=== PATIENT | female | born 1955 | race Hispanic/Latino ===

== ENCOUNTER 2024-08-07 12:04 | Inpatient (IN) | payer MEDICARE ==
[~2024-08-07] VITALS: Ht 157.5 cm; Wt 69.6 kg
[2024-08-07 12:10] VITALS: TEMP 98.7
[2024-08-07] MEDS ORDERED: SODIUM CHLORIDE FLUSH 10 ML SYR IV PRN (12:30)
[2024-08-07] MEDS: NITROGLYCERIN 2% OINT 1 GM PKT TOP ONE (13:09)
[2024-08-07 13:19] LABS: BASOPHILS # (AUTO) 0.1 (0.0-0.1); BASOPHILS % 0.7 % (0.0-1.0); EOSINOPHILS # (AUTO) 1.2 (0.0-0.4); EOSINOPHILS % 17.1 % (0.0-6.0); HEMATOCRIT 44.4 % (34.2-44.1); HEMOGLOBIN 15.2 g/dL (12.0-16.0); LYMPHOCYTES # (AUTO) 0.8 (1.0-3.2); LYMPHOCYTES % 10.9 % (18.0-39.1); MEAN CORPUSCULAR HEMOGLOBIN 31.8 pg (28-32); MEAN CORPUSCULAR HGB CONC 34.2 g/dL (31-35); MEAN CORPUSCULAR VOLUME 92.9 fL (81-99); MONOCYTES # (AUTO) 0.3 (0.2-0.8); MONOCYTES % 3.8 % (4.4-11.3); NEUTROPHILS # (AUTO) 4.8 (2.1-6.9); NEUTROPHILS % 66.9 % (38.7-80.0); RED BLOOD COUNT 4.78 x10e6/uL (3.6-5.1); RED CELL DISTRIBUTION WIDTH 14.2 % (11.7-14.4); WHITE BLOOD COUNT 7.18 x10e3/uL (4.8-10.8)
[2024-08-07 13:20] LABS: PLATELET COUNT 94 x10e3/uL (140-360)
[2024-08-07 13:37] LABS: ALBUMIN 3.9 g/dL (3.5-5.0); ANION GAP 13.7 mmol/L (8-16); CALCIUM 9.2 mg/dL (8.4-10.2); CREATININE, SERUM 0.77 mg/dL (0.57-1.11); POTASSIUM 3.7 mmol/L (3.5-5.1); TOTAL PROTEIN 7.7 g/dL (6.5-8.1)
[2024-08-07 13:43] LABS: TROPONIN I 0.027 ng/mL (0-0.300)
[2024-08-07 13:51] LABS: INR 1.22
[2024-08-07 13:52] LABS: PARTIAL THROMBOPLASTIN TIME 29.1 seconds (23.8-35.5)
[2024-08-07] MEDS: METHYLPREDNISOLONE SOD SUCC 125 MG/2ML VIAL IV ONE (14:18)
[2024-08-07] MEDS ORDERED: SODIUM CHLORIDE FLUSH 10 ML SYR INJ PRN (14:30)
[2024-08-07] MEDS ORDERED: ONDANSETRON HCL INJ 2MG/ML 2ML 2 MG/ML VIAL IV PRN (14:30)
[2024-08-07 14:55] VITALS: PULSE 88; RESP 18; O2SAT 96
[2024-08-07] MEDS: ALBUTEROL/IPRATROPIUM 3 ML NEB NEB ONE (14:56)
[2024-08-07 19:00] VITALS: PULSE 73; RESP 18
[2024-08-07] MEDS: ASPIRIN 81 MG CHEW TAB PO ONE (19:12)
[2024-08-07 19:45] VITALS: PULSE 89; RESP 18; O2SAT 96
[2024-08-07 21:23] LABS: TROPONIN I 0.035 ng/mL (0-0.300)
[2024-08-07 21:30] VITALS: BP 123/77; PULSE 73; RESP 16; TEMP 98.4; O2SAT 96
[2024-08-07 21:47] VITALS: BP 123/77; PULSE 73; RESP 16; TEMP 98.4; O2SAT 96
[2024-08-08] VITALS (11 sets, daily range): BP systolic 110–143; BP diastolic 63–88; PULSE 76–93; RESP 16–19; TEMP 97–98.7; O2SAT 96–100
[2024-08-08 05:57] LABS: HEMATOCRIT 37.6 % (34.2-44.1); HEMOGLOBIN 12.9 g/dL (12.0-16.0); LYMPHOCYTES # (AUTO) 0.5 (1.0-3.2); LYMPHOCYTES % 13.3 % (18.0-39.1); MEAN CORPUSCULAR HEMOGLOBIN 31.8 pg (28-32); MEAN CORPUSCULAR HGB CONC 34.3 g/dL (31-35); MEAN CORPUSCULAR VOLUME 92.6 fL (81-99); MONOCYTES # (AUTO) 0.1 (0.2-0.8); MONOCYTES % 3.1 % (4.4-11.3); NEUTROPHILS # (AUTO) 3.3 (2.1-6.9); NEUTROPHILS % 83.6 % (38.7-80.0); PLATELET COUNT 70 x10e3/uL (140-360); RED BLOOD COUNT 4.06 x10e6/uL (3.6-5.1); RED CELL DISTRIBUTION WIDTH 14.3 % (11.7-14.4); WHITE BLOOD COUNT 3.92 x10e3/uL (4.8-10.8)
[2024-08-08 06:20] LABS: TROPONIN I 0.036 ng/mL (0-0.300)
[2024-08-08 06:21] LABS: ALBUMIN 3.4 g/dL (3.5-5.0); ANION GAP 14.1 mmol/L (8-16); BILIRUBIN,TOTAL 1.5 mg/dL (0.2-1.2); CALCIUM 8.9 mg/dL (8.4-10.2); CREATININE, SERUM 0.86 mg/dL (0.57-1.11); POTASSIUM 4.1 mmol/L (3.5-5.1); TOTAL PROTEIN 6.7 g/dL (6.5-8.1)
[2024-08-08] MEDS: ASPIRIN 325 MG TAB EC PO SCH (09:00)
[2024-08-08] MEDS ORDERED: HYDRALAZINE HCL 20 MG/ML VIAL IV PRN (11:15)
[2024-08-08] MEDS ORDERED: ACETAMINOPHEN 325 MG TAB PO PRN (11:15)
[2024-08-08] MEDS ORDERED: POLYETHYLENE GLYCOL 3350 17 GM PACK PO PRN (11:15)
[2024-08-08] MEDS: METHYLPREDNISOLONE SOD SUCC 125 MG/2ML VIAL IV SCH (12:43)
[2024-08-08] MEDS: SODIUM CHLORIDE 0.9% 1000ML 1,000 ML IV ONE (12:43)
[2024-08-08] MEDS: Doxycycline IV 100 MG in SODIUM CHLORIDE 0.9% 100 ML IV SCH (12:44)
[2024-08-08] MEDS ORDERED: IOPAMIDOL 370 MG/ML 100 ML INFUS..BTL INJ ONE (13:08)
[2024-08-08 14:54] LABS: CHOL/HDL RATIO 2.7 (3.0-3.6); MAGNESIUM 2.1 MG/DL (1.3-2.1); PHOSPHORUS 3.9 MG/DL (2.3-4.7)
[2024-08-08 15:15] LABS: THYROID STIMULATING HORMONE 0.585 uIU/mL (0.350-4.940)
[2024-08-08] MEDS: DOCUSATE SODIUM 100 MG CAP PO SCH (17:35)
[2024-08-08] MEDS: FAMOTIDINE 20 MG TAB PO SCH (17:36)
[2024-08-08] MEDS: BUDESONIDE/FORMOTEROL 160/4.5MCG INHALER INH SCH (19:00)
[2024-08-08] MEDS: ALBUTEROL/IPRATROPIUM 3 ML NEB NEB SCH (19:00)
[2024-08-09] VITALS (12 sets, daily range): BP systolic 118–169; BP diastolic 72–97; PULSE 73–97; RESP 16–19; TEMP 97.8–98.2; O2SAT 96–100
[2024-08-09 06:26] LABS: HEMATOCRIT 34.4 % (34.2-44.1); HEMOGLOBIN 11.6 g/dL (12.0-16.0); LYMPHOCYTES # (AUTO) 0.4 (1.0-3.2); LYMPHOCYTES % 10.1 % (18.0-39.1); MEAN CORPUSCULAR HEMOGLOBIN 31.8 pg (28-32); MEAN CORPUSCULAR HGB CONC 33.7 g/dL (31-35); MEAN CORPUSCULAR VOLUME 94.2 fL (81-99); MONOCYTES # (AUTO) 0.2 (0.2-0.8); MONOCYTES % 5.3 % (4.4-11.3); NEUTROPHILS # (AUTO) 3.5 (2.1-6.9); NEUTROPHILS % 84.1 % (38.7-80.0); PLATELET COUNT 51 x10e3/uL (140-360); RED BLOOD COUNT 3.65 x10e6/uL (3.6-5.1); RED CELL DISTRIBUTION WIDTH 14.4 % (11.7-14.4); WHITE BLOOD COUNT 4.15 x10e3/uL (4.8-10.8)
[2024-08-09 07:00] LABS: ALBUMIN 3.1 g/dL (3.5-5.0); ALBUMIN/GLOBULIN RATIO 1.1 (0.8-2.0); BILIRUBIN,TOTAL 0.8 mg/dL (0.2-1.2); CALCIUM 8.5 mg/dL (8.4-10.2); CREATININE, SERUM 0.74 mg/dL (0.57-1.11); TOTAL PROTEIN 5.9 g/dL (6.5-8.1)
[2024-08-10] VITALS (11 sets, daily range): BP systolic 142–161; BP diastolic 78–87; PULSE 82–105; RESP 16–20; TEMP 97.7–98.6; O2SAT 93–100
[2024-08-10] MEDS ORDERED: ONDANSETRON HCL 4 MG ORAL DISINTEGRATING TAB PO PRN (12:00)
[2024-08-10] MEDS ORDERED: ONDANSETRON ODT4 MG PO (14:34)
[2024-08-10] MEDS ORDERED: PREDNISONE10 MG PO (14:34)
[2024-08-10] MEDS ORDERED: DOXYCYCLINE HY100 MG PO (14:34)
[2024-08-10] MEDS ORDERED: SYMBICORT 16010.2 GM INH (14:34)
[2024-08-10] MEDS ORDERED: ACETAMINOPHEN325 M1 PO (14:34)
[2024-08-10] MEDS ORDERED: ALBUTEROL0.63 MG/3 NEB (14:34)
[2024-08-10] MEDS ORDERED: ASPIRIN ENTERI325 MG PO (14:34)
[2024-08-10] MEDS ORDERED: DOXYCYCLINE HYCLATE TABLET 100 MG TAB PO SCH (21:00)
== END 2024-08-10 16:08 | disposition home or self-care (01) | DRG 204 ==
LOC: ER 12:18 → ERHOLD 14:31 → MED/SURG3 21:20 → OBSVTOIN 08-08 14:36
PROVIDERS: ADMIT Internal Medicine; ATTEND Internal Medicine
DX: R06.2 Wheezing (principal); R06.02 Shortness of breath; R05.9 Cough, unspecified; R09.02 Hypoxemia; I16.0 Hypertensive urgency; I10 Essential (primary) hypertension; K76.9 Liver disease, unspecified; D69.6 Thrombocytopenia, unspecified; R73.9 Hyperglycemia, unspecified; R74.01 Elevation of levels of liver transaminase levels; Z99.81 Dependence on supplemental oxygen; R63.4 Abnormal weight loss; Z71.3 Dietary counseling and surveillance; Z68.28 Body mass index [BMI] 28.0-28.9, adult
CPT/HCPCS: 36415; 71045; 71260; 80053; 80061; 82550; 83036; 83735; 83880; 84100; 84439; 84443; 84484; 85025; 85610; 85730; 93005; 93306; 94640; 94760; 94799; 99284; G0378; J2919; J7030; J7050; Q9967